=== PATIENT | male | born 1990 | race Caucasian/White ===

== ENCOUNTER 2020-11-12 10:23 | Emergency (ER) | payer BC, SELFPAY ==
[2020-11-12 10:25] VITALS: BP 162/107; PULSE 58; RESP 16; TEMP 36.6; O2SAT 98; BMI 30.7
--- NOTE | 2020-11-12 10:39 | CT_ITS ---
PROCEDURE INFORMATION: Exam: CT Abdomen And Pelvis With Contrast Exam date and time: 11/12/2020 10:39 AM Age: 30 years old Clinical indication: Abdominal pain; Localized; Right upper quadrant (ruq); Prior surgery; Surgery date: 6+ months; Additional info: Ruq pain TECHNIQUE: Imaging protocol: Computed tomography of the abdomen and pelvis with contrast. Radiation optimization: All CT scans at this facility use at least one of these dose optimization techniques: automated exposure control; mA and/or kV adjustment per patient size (includes targeted exams where dose is matched to clinical indication); or iterative reconstruction. Contrast material: ISOVUE; Contrast volume: 75 ml; Contrast route: IV; COMPARISON: No relevant prior studies available. FINDINGS: Liver: Subcentimeter hypoattenuating lesion in the right liver is too small to characterize, likely a cyst or hemangioma. No imaging followup required unless the patient has a history of known malignancy. Gallbladder and bile ducts: Cholelithiasis is suspected. The gallbladder is otherwise contracted and there is no pericholecystic inflammation. No biliary ductal dilation. Pancreas: No ductal dilation. Spleen: No splenomegaly. Adrenal glands: No mass. Kidneys and ureters: No hydronephrosis. Stomach and bowel: No obstruction. No mucosal thickening. Appendix: The appendix is not identified. No right lower quadrant inflammation. Intraperitoneal space: No free air. No significant fluid collection. Vasculature: No abdominal aortic aneurysm. Lymph nodes: No enlarged lymph nodes. Urinary bladder: Unremarkable as visualized. Reproductive: Unremarkable as visualized. Bones/joints: No acute fracture. Soft tissues: Mild soft tissue stranding along the right anterior abdominal wall. IMPRESSION: 1. No acute intra-abdominal abnormality. 2. Suspect cholelithiasis, although with no evidence of cholecystitis. 3. Mild soft tissue stranding along the right anterior abdominal wall.
--- NOTE | 2020-11-12 10:54 | [facility].EDGENADL ---
ED Disposition Clinical Impression: Abdominal wall contusion, Leg abrasion Disposition: Home, Self-Care Condition on Discharge: Good Additional Instructions: Use Tylenol as needed for pain. Wound care is instructed. Return to the emergency room for any new symptoms. Referrals: Walter Maria MD [Primary Care Provider] - - Critical Care Critical Care Time: No Attestation: On , the high probability of a clinically significant, sudden or life threatening deterioration of the following system(s) required my full and direct attention, intervention and personal management. The time I documented below is in addition to time spent performing reported procedures but includes the following listed in this critical care notation. Medical Decision Making - Medical Records MR Comment: Patient abdominal exam is completely benign. CT scan of the abdomen is completely normal. Abdominal exam there is no guarding or rebound tenderness. abrasion on the front of the left leg. no need for stitches. wound cleaned and dressed. - Edgardo Inquiry Pt receiving controlled substance: No Edgardo was queried for this patient: No Vital Signs: 11/12/20 10:25 11/12/20 11:01 11/12/20 11:31 Temperature 98 F Temperature Source Oral Pulse Rate 58 L 58 L Pulse Rate [Radial] 58 L Respiratory Rate 16 18 18 Blood Pressure 122/75 147/91 H Blood Pressure [Right Arm] 162/107 H Blood Pressure Mean 90 109 Blood Pressure Mean [Right Arm] 125 Blood Pressure Position Blood Pressure Position [Right Arm] Sitting 02 Sat by Pulse Oximetry 98 96 97 Oxygen Delivery Method Room Air 11/12/20 12:01 11/12/20 12:31 11/12/20 13:26 Temperature 98 F Temperature Source Oral Pulse Rate 72 64 58 L Pulse Rate [Radial] Respiratory Rate 20 16 Blood Pressure 127/80 133/84 112/74 Blood Pressure [Right Arm] Blood Pressure Mean 95 92 Blood Pressure Mean [Right Arm] Blood Pressure Position Sitting Blood Pressure Position [Right Arm] 02 Sat by Pulse Oximetry 96 97 Oxygen Delivery Method Room Air - Lab Data Lab Results 11/12/20 10:50: WBC 10.3, RBC 4.93, Hgb 14.3, Hct 43.0, MCV 87.2, MCH 29.1, MCHC 33.3, RDW 13.3, Plt Count 321, MPV 8.3, Neut % (Auto) 67.1, Lymph % (Auto) 25.2, [place] % (Auto) 4.5, Eos % (Auto) 2.8, Baso % (Auto) 0.5, Neut # (Auto) 6.9, Lymph # (Auto) 2.6, [place] # (Auto) 0.5, Eos # (Auto) 0.3, Baso # (Auto) 0.1 11/12/20 10:50: Sodium 139, Potassium 4.1, Chloride 106, Carbon Dioxide 24, Anion Gap 13.1, BUN 12, Creatinine 0.80, Estimated Creat Clear 162, Estimated GFR 112, Est GFR ( Amer) 136, Glucose 100, Calcium 9.3, Total Bilirubin 0.6, AST 50, ALT 88 H, Alkaline Phosphatase 65, Total Protein 7.7, Albumin 5.0, Globulin 2.7, Albumin/Globulin Ratio 1.9 H Result diagrams: 11/12/20 10:50 11/12/20 10:50 Orders (Tests/Meds): ED MEDICATIONS Discontinued Medications Generic Name Dose Route Start Last Admin Trade Name Tonyq PRN Reason Stop Dose Admin Sodium Chloride 1,000 mls @ 999 mls/hr 11/12/20 10:45 11/12/20 11:06 Sod Chlor 0.9% 1000ml Bag IV 11/12/20 11:45 999 mls/hr .Q1H1M RAUL Administration Iopamidol 75 ml 11/12/20 11:24 11/12/20 11:25 Iopamidol-370 (76%);100ml Bottle IV 11/12/20 11:25 75 ml ONCE ONE Administration Ketorolac Tromethamine 15 mg 11/12/20 12:51 11/12/20 13:10 Ketorolac 30mg/Ml Vial IV 11/12/20 12:52 15 mg ONCE ONE Administration Sodium Chloride 10 ml 11/12/20 11:24 11/12/20 11:25 Sodium Chloride 0.9% 10ml Syr (Rad Only) IV 11/12/20 11:25 10 ml ONCE ONE Administration Tetanus/Reduced Diphtheria/Acell Pertussis 0.5 ml 11/12/20 10:40 11/12/20 11:07 Tet/Diphth/Pert-Adult 0.5ml Syringe IM 11/12/20 10:41 0.5 ml .ONCE ONE Administration General Adult HPI - General Chief complaint: PAIN Stated complaint: [id number] fall, pain in stomach and injured leg Time Seen by Provider: 11/12/20 11:50 Mode of Arrival: Ambulator
[2020-11-12 10:57] LABS: Basophils # 0.1 K/mm3 (0-0.2); Basophils % 0.5 % (0.1-2.0); Eosinophils # 0.3 K/mm3 (0.0-0.4); Eosinophils % 2.8 % (0.1-12.0); Hemoglobin 14.3 g/dL (14.1-18.0); Lymphocytes # 2.6 K/mm3 (0.7-4.5); Lymphocytes % 25.2 % (10-50); Mean Corpuscular HGB Conc 33.3 g/dL (31.8-35.4); Mean Corpuscular Hemoglobin 29.1 pg (27.0-31.2); Mean Corpuscular Volume 87.2 fl (80-94); Mean Platelet Volume 8.3 fl (7.4-10.4); Monocytes # 0.5 K/mm3 (0.1-1.0); Monocytes % 4.5 % (1.7-9.3); Neutrophils # 6.9 K/mm3 (1.8-7.8); Neutrophils % 67.1 % (37.0-80.0); Platelet Count 321 K/mm3 (142-424); Red Blood Count 4.93 M/mm3 (4.60-6.20); Red Cell Distribution Width 13.3 % (11.5-17.5); White Blood Count 10.3 K/mm3 (4.8-10.8)
[2020-11-12 11:01] VITALS: BP 122/75; PULSE 58; RESP 18; O2SAT 96
[2020-11-12 11:04] LABS: Chloride 106 mmol/L (98-107); Potassium 4.1 mmoL/L (3.5-5.1); Sodium 139 mmol/L (136-145)
[2020-11-12 11:06] LABS: Blood Urea Nitrogen 12 mg/dl (9-20); Creatinine Clearance Estimated 162 mL/min (50-200); Estimated Glomerular Filt Rate 112 ml/min (>60); GFR (African American) 136 ML/MIN (>60)
[2020-11-12 11:07] LABS: Alanine Aminotransferase 88 U/L (12-78); Albumin/Globulin Ratio 1.9 (1.1-1.8); Alkaline Phosphatase 65 U/L (38-126); Anion Gap 13.1 mEq/L (5-15); Aspartate Amino Transferase 50 U/L (17-59); Bilirubin,Total 0.6 mg/dl (0.2-1.3); Calcium 9.3 mg/dl (8.4-10.2); Carbon Dioxide 24 mmol/L (22.0-30.0); Globulin 2.7 g/dL (1.3-3.2); Glucose 100 mg/dl (74-100); Total Protein,Serum 7.7 g/dl (6.3-8.2)
[2020-11-12 11:31] VITALS: BP 147/91; PULSE 58; RESP 18; O2SAT 97
[2020-11-12 12:01] VITALS: BP 127/80; PULSE 72; O2SAT 96
[2020-11-12 12:31] VITALS: BP 133/84; PULSE 64; RESP 20; O2SAT 97
--- NOTE | 2020-11-12 13:00 | PC.NURSE ---
ABRASION NOTED TO LT LOWER LEG, WOUND CLEANED, SMALL APPROX 1.5CM LAC NOTED. INFORMED . PSO DSGING APPLIED
[2020-11-12 13:26] VITALS: BP 112/74; PULSE 58; RESP 16; TEMP 36.6; O2SAT 98
== END 2020-11-12 13:31 | disposition home or self-care (01) ==
PROVIDERS: Emergency Provider Internal Medicine; PCP Family Medicine
DX: S30.1XXA Contusion of abdominal wall, initial encounter (principal); S80.812A Abrasion, left lower leg, initial encounter; W17.89XA Other fall from one level to another, initial encounter; Y92.89 Other specified places as the place of occurrence of the external cause; Z23 Encounter for immunization
CPT/HCPCS: 74177; 80053; 85025; 90715; 96365; 96375; 99282; Q9967